=== PATIENT | female | born 2000 | race Hispanic/Latino ===

== ENCOUNTER 2018-02-15 23:19 | Emergency (ER) | payer BC ==
[2018-02-15 23:25] VITALS: BMI 28.1
[2018-02-15] MEDS ORDERED: Lidocaine 1% Inj (20ml) IJ STA (23:30)
[2018-02-15] MEDS ORDERED: TDAP Vaccine 0.5 mL Syr IM ONE (23:30)
--- NOTE | 2018-02-15 23:34 | ED PDOC ---
Arrival/HPI - General Chief Complaint: Abnormal Skin Integrity Time Seen by Provider: 02/15/18 23:30 Historian: Patient - History of Present Illness Narrative History of Present Illness (Text): 02/15/18 23:31 17 y/o female, no significant pmh, nkda , last tetanus doesnt remember, c/o rt. heel laceration x 1 hour. pt. stated that she accidentally hit on the door edge metal frame about 1 hour ago, sustained laceration, no numbness or tingling , no rash, no night sweat, no dizziness, no difficulty moving the rt. foot 5 digit toe or ankle. Past Medical History - Provider Review Nursing Documentation Reviewed: Yes - Past History Past History: No Previous - Infectious Disease Hx of Infectious Diseases: None - Tetanus Immunization Tetanus Immunization: Unknown - Past Medical History Past Medical History: No Previous - Psychiatric Hx Depression: No Hx Emotional Abuse: No Hx Physical Abuse: No Hx Substance Use: No - Past Surgical History Past Surgical History: No Previous - Suicidal Assessment Feels Threatened In Home Enviroment: No Family/Social History - Physician Review Nursing Documentation Reviewed: Yes Family/Social History: Unknown Family HX Hx Alcohol Use: No Hx Substance Use: No Hx Substance Use Treatment: No Allergies/Home Meds Allergies/Adverse Reactions: Allergies No Known Allergies Allergy (Verified 10/29/13 18:07) Review of Systems - Review of Systems Constitutional: absent: Fatigue, Fevers Eyes: absent: Vision Changes ENT: absent: Hearing Changes Respiratory: absent: SOB, Cough Cardiovascular: absent: Chest Pain Gastrointestinal: absent: Abdominal Pain, Nausea, Vomiting Skin: Laceration. absent: Rash, Pruritis, Skin Lesions, Abscess, Ulcer, Cellulitis Neurological: absent: Headache, Dizziness Psychiatric: absent: Anxiety, Depression Physical Exam Vital Signs Reviewed: Yes Vital Signs Temp Pulse Resp Pulse Ox 02/16/18 01:05 99 02/15/18 23:27 97.9 F 85 16 99 Temperature: Afebrile Blood Pressure: Normal Pulse: Regular Respiratory Rate: Normal Appearance: Positive for: Well-Appearing, Non-Toxic, Comfortable Pain Distress: Mild Mental Status: Positive for: Alert and Oriented X 3 - Systems Exam Head: Present: Atraumatic, Normocephalic Pupils: Present: PERRL Extroacular Muscles: Present: EOMI Conjunctiva: Present: Normal Neck: Present: Normal Range of Motion Respiratory/Chest: Present: Clear to Auscultation, Good Air Exchange. No: Respiratory Distress, Accessory Muscle Use Cardiovascular: Present: Regular Rate and Rhythm, Normal S1, S2. No: Murmurs Abdomen: No: Tenderness, Distention, Peritoneal Signs Back: Present: Normal Inspection Upper Extremity: Present: Normal Inspection. No: Cyanosis, Edema Lower Extremity: Present: Normal Inspection, Other (Rt. foot posterior heel region visible approx. 3cm superficial to intermediate depth laceration with mild oozing, negative jo and randall signs, +DPPT pulses, capillary refill< 2 seconds, neurovascular intact. ). No: Edema Neurological: Present: GCS=15, CN II-XII Intact, Speech Normal Skin: Present: Warm, Dry, Normal Color. No: Rashes Psychiatric: Present: Alert, Oriented x 3, Normal Insight, Normal Concentration Medical Decision Making ED Course and Treatment: 02/15/18 23:35 Differential: fracture vs. dislocation vs. foreig bodies vs. laceration -xray 02/15/18 23:37 -Urine hcg is negative. PROCEDURE: LACERATION REPAIR Performed by me Location: Right posterior heel Length: 3.0 cm Description: Superficial to intermediate depth, clean wound edges, no foreign bodies Distal CMS: Normal. No deficits. Neurovascularly intact. Anesthesia: 0.5 cc of Lidocaine 1% Preparation: The wound was cleaned with 1000 cc NS and Betadyne. The area was prepped and draped in the usual sterile fashion. Exploration: The wound was explored and no foreign bodies were found. Procedure: Wound irrigated with 100cc of normal saline and prepped with Betadyne. Injected locally with 0.5 cc of Lidocaine 1%. Laceration closed with 4 -0 nylon with 7 sutures. Hemostasis obtained. Well approximated. Post-Procedure: Good closure and hemostasis. The patient tolerated the procedure well and there were no complications. Neurovascularly intact. Sensation intact. Post procedure dressing applied. Total Procedure Time: 15 minutes 02/16/18 00:24 Discharge home with keflex motrin, keep the dressing dry and clean, follow up with your own pmd and surveying crew rodman within 2 days, sutures needed to be removed by day 7-10, return to the ER for any new or worsening signs or symptoms. - RAD Interpretation Radiology Orders: 02/15/18 23:30 FOOT RIGHT 3 VIEWS ROUTINE [RAD] Stat no evidenced of displaced fracture/dislocation/foreign bodies. Radio Installer Automobile: Radiologist - Medication Orders Current Medication Orders: Discontinued Medications Ibuprofen (Motrin Tab) 600 mg PO STAT STA Stop: 02/16/18 00:33 Last Admin: 02/16/18 00:45 Dose: 600 mg Lidocaine HCl (Lidocaine 1% (20ml)) 0.5 ml IJ STAT STA Stop: 02/15/18 23:31 Last Admin: 02/16/18 00:17 Dose: 0.5 ml Tetanus/Reduced Diphtheria/Acell Pertussis (Boostrix Vaccine Inj) 0.5 ml IM .ONCE ONE Stop: 02/15/18 23:31 Last Admin: 02/16/18 00:27 Dose: 0.5 ml - PA / PLATFORM BUILDER / Resident Statement / has reviewed & agrees with the documentation as recorded. Disposition/Present on Arrival - Present on Arrival Any Indicators Present on Arrival: No History of DVT/PE: No History of Uncontrolled Diabetes: No Urinary Catheter: No History of Decub. Ulcer: No History Surgical Site Infection Following: None - Disposition Have Diagnosis and Disposition been Completed?: Yes Diagnosis: Foot laceration Disposition: HOME/ ROUTINE Disposition Time: 23:35 Patient Plan: Discharge Condition: GOOD Additional Instructions: Discharge home with keflex, motrin, keep the dressing dry and clean, follow up with your own pmd and surveying crew rodman within 2 days, sutures needed to be removed by day 7-10, return to the ER for any new or worsening signs or symptoms. Prescriptions: Cephalexin [Keflex] 500 mg PO QID #32 capsule Ibuprofen [Motrin Tab] 600 mg PO QID PRN #25 tab PRN Reason: Other Referrals: Artemio Davila DPM [Staff Provider] - Follow up with primary Forms: WORK NOTE
[2018-02-15 23:41] VITALS: PULSE 85; RESP 16; TEMP 97.9; O2SAT 99
--- NOTE | 2018-02-16 10:04 | RAD ---
PROCEDURE: Right Foot Radiographs. HISTORY: Right foot heel laceration COMPARISON: None. FINDINGS: BONES: No evidence acute displaced fracture nor dislocation. The osseous structures appear intact. No cortical destructive changes seen JOINTS: Joint spaces preserved. No significant osteoarthritis SOFT TISSUES: No evidence of subcutaneous emphysema or radiopaque foreign bodies OTHER FINDINGS: None. IMPRESSION: No evidence of acute displaced fracture nor dislocation. No evidence of subcutaneous air or radiopaque foreign bodies. Follow-up studies could be performed as needed
== END 2018-02-16 01:05 | disposition home or self-care (01) ==
LOC: ED 23:19
DX: S91.311A Laceration without foreign body, right foot, initial encounter (principal); W22.8XXA Striking against or struck by other objects, initial encounter; Z23 Encounter for immunization

== ENCOUNTER 2018-02-23 17:25 | Emergency (ER) | payer BC ==
[2018-02-23 17:25] VITALS: BMI 28.1
[2018-02-23 17:59] VITALS: BP 119/67; PULSE 95; RESP 16; TEMP 98.4; O2SAT 98
--- NOTE | 2018-02-23 18:26 | ED PDOC ---
Arrival/HPI - General Chief Complaint: Suture/Staple Removal Time Seen by Provider: 02/23/18 18:22 Historian: Patient - History of Present Illness Narrative History of Present Illness (Text): 02/23/18 18:23 This 17 yo female presents to this ED with her mother for sutures removal. Patient stated she had laceration repaired x 8 days ago. She denies new complains. Time/Duration: Other (see hpi) Context: Home Past Medical History - Provider Review Nursing Documentation Reviewed: Yes - Past History Past History: No Previous - Infectious Disease Hx of Infectious Diseases: None - Tetanus Immunization Tetanus Immunization: Unknown - Reproductive Menopause: No - Past Medical History Past Medical History: No Previous - Psychiatric Hx Depression: No Hx Emotional Abuse: No Hx Physical Abuse: No Hx Substance Use: No - Past Surgical History Past Surgical History: No Previous - Anesthesia Hx Anesthesia: No - Suicidal Assessment Feels Threatened In Home Enviroment: No Family/Social History - Physician Review Nursing Documentation Reviewed: Yes Family/Social History: Other (noncontributory) Smoking Status: Unknown If Ever Smoked Hx Alcohol Use: No Hx Substance Use: No Hx Substance Use Treatment: No Allergies/Home Meds Allergies/Adverse Reactions: Allergies No Known Allergies Allergy (Verified 10/29/13 18:07) Review of Systems - Review of Systems Constitutional: Normal. absent: Fatigue, Weight Change, Fevers Eyes: Normal ENT: Normal Respiratory: Normal Cardiovascular: Normal Gastrointestinal: Normal Genitourinary Female: Normal Musculoskeletal: Normal Skin: Other (sutures removal) Neurological: Normal Endocrine: Normal Hemo/Lymphatic: Normal Psychiatric: Normal Physical Exam Vital Signs Temp Pulse Resp BP Pulse Ox 02/23/18 17:45 98.4 F 95 H 16 119/67 98 Temperature: Afebrile Blood Pressure: Normal Pulse: Regular Respiratory Rate: Normal Appearance: Positive for: Well-Appearing, Non-Toxic, Comfortable Pain Distress: None Mental Status: Positive for: Alert and Oriented X 3 - Systems Exam Head: Present: Atraumatic, Normocephalic Pupils: Present: PERRL Extroacular Muscles: Present: EOMI Conjunctiva: Present: Normal Mouth: Present: Moist Mucous Membranes Neck: Present: Normal Range of Motion Upper Extremity: Present: Normal Inspection, Normal ROM Lower Extremity: Present: NORMAL PULSES, Normal ROM, Neurovascularly Intact, Capillary Refill < 2 s, Other ((+) right lateral heel wound is healing well. No surrounding cellulitis. No discharge or tenderness). No: Edema, CALF TENDERNESS Neurological: Present: GCS=15, CN II-XII Intact, Speech Normal, Motor Func Grossly Intact, Normal Sensory Function, Normal Cerebellar Funct, Gait Normal, Memory Normal Skin: Present: Warm, Dry, Normal Color. No: Rashes Psychiatric: Present: Alert, Oriented x 3, Normal Insight, Normal Concentration Medical Decision Making ED Course and Treatment: 02/23/18 18:25 Re-evaluation. Patient feels better. Discussed results and plan with patient who expresses understanding. All questions answered and there is agreement with the plan to discharge home with instructions. Patient stable for discharge. Return if symptoms persist or worsen. Re-evaluation Time: 18:25 Reassessment Condition: Re-examined, Improved - Procedure PROCEDURE NOTE (Text): 02/23/18 18:26 PROCEDURE: SUTURE REMOVAL Performed by the emergency provider Location: right lateral heel Length: approx. 4 cm Distal CMS: Normal. No deficits. Neurovascularly intact. Preparation: The wound was cleaned with NS and Betadyne. The area was prepped and draped in the usual sterile fashion. Procedure: In total, 7 sutures were removed. Post-Procedure: Good closure and hemostasis. The patient tolerated the procedure well and there were no complications. CSM remains intact. Disposition/Present on Arrival - Present on Arrival Any Indicators Present on Arrival: No History of DVT/PE: No History of Uncontrolled Diabetes: No Urinary Catheter: No History of Decub. Ulcer: No History Surgical Site Infection Following: None - Disposition Have Diagnosis and Disposition been Completed?: Yes Diagnosis: Encounter for wound re-check, Encounter for removal of sutures Disposition: HOME/ ROUTINE Disposition Time: 18:28 Patient Plan: Discharge Patient Problems: Current Active Problems Problem Status Onset Encounter for removal of sutures Acute Encounter for wound re-check Acute Condition: GOOD Discharge Instructions (ExitCare): Stitches Removal Additional Instructions: Call private doctor for follow up visit in 1-2 days. Clean wound daily with soap and water. You can apply a band aid as needed. Return to emergency if symptoms worsen. Referrals: Kavon Llanos MD [Family Provider] - Follow up with primary
== END 2018-02-23 18:32 | disposition home or self-care (01) ==
LOC: ED 17:25
DX: Z48.02 Encounter for removal of sutures (principal)